=== PATIENT | female | born 1985 | race African-American/Black ===

== ENCOUNTER 2021-10-02 21:04 | Emergency (ER) | payer MEDICAID ==
[~2021-10-02] VITALS: Ht 162.6 cm; Wt 69.0 kg
[2021-10-02] MEDS ORDERED: ACETAMINOPHEN 325MG TABLET PO ONE (22:45)
[2021-10-02] MEDS ORDERED: AMOXICILLIN/POTASSIUM CLAVULANATE 875/125MG TAB PO ONE (22:45)
[2021-10-02] MEDS ORDERED: KETOROLAC 30MG/ML VIAL IM ONE (22:45)
[2021-10-02 23:11] VITALS: BP 105/58
[2021-10-02] MEDS ORDERED: NAPR-1176 MT (23:27)
[2021-10-02] MEDS ORDERED: TOPUD MT (23:27)
[2021-10-02] MEDS ORDERED: AMOX-424 MT (23:27)
== END 2021-10-02 23:58 | disposition home or self-care (01) ==
LOC: ER 21:04
DX: K04.7 Periapical abscess without sinus (principal); R68.84 Jaw pain
CPT/HCPCS: 81025; 96372; 99283; J1885